=== PATIENT | female | born 1965 | race Caucasian/White ===

== ENCOUNTER → 2020-08-08 | Day surgery (SDC) | payer BC, OTHER ==
[~2020-08-08] MED LIST: ESTRADIOL1 EACH TD; PRAVASTATIN SOD20 MG PO; PROGESTERONE200 MG PO
== END | disposition home or self-care (01) ==
LOC: OR 10:46
DX: R31.29 Other microscopic hematuria (principal); F17.210 Nicotine dependence, cigarettes, uncomplicated; Z79.51 Long term (current) use of inhaled steroids; Z79.899 Other long term (current) drug therapy; Z88.1 Allergy status to other antibiotic agents; Z87.442 Personal history of urinary calculi
CPT/HCPCS: J7040